=== PATIENT | female | born 1950 | race American Indian/Alaskan Native ===

== ENCOUNTER 2016-03-24 07:06 | Inpatient (IN) | payer BC, MEDICARE ==
--- NOTE | 2016-03-19 08:57 | Anesthesia Consultation ---
Anesthesia Consult and Med Hx Date of service: 03/24/16 - Airway Anesthetic Teeth Evaluation: Good ROM Head & Neck: Adequate Mental/Hyoid Distance: Adequate Mallampati Class: Class I Intubation Access Assessment: Good - Pulmonary Exam CTA: Yes - Cardiac Exam Cardiac Exam: RRR - Pre-Operative Health Status ASA Pre-Surgery Classification: ASA1 Proposed Anesthetic Plan: General, Epidural Nerve Block: Femoral - Pulmonary Hx Smoking: No Hx Sleep Apnea: No (KATHERINE PRE SCREEN LOW RISK) - Cardiovascular System Hx Hypertension: No - Central Nervous System Hx Back Pain: Yes - Other Systems Hx Cancer: No - Additional Comments Anesthesia Medical History Comments: Healthy. Had difficulty breathing after shoulder surgery, a few years ago. Dilaudid causes severe itching. Patient has had hysterectomy.
[~2016-03-24 07:06] MED LIST: ANCEF/STERILE WATER 2 GM/20 ML IV NR; MARCAINE-EPI 0.5%-1:200,000 INFILTRATI ONE; NACL 0.9% 1000 ML 1,000 ML IV SCH; NACL 0.9% IR ONE; NEOSPORIN GU IR ONE; NEURONTIN PO NR; PEPCID IV NR; VERSED IV PRN
[2016-03-24] MEDS ORDERED: ZOFRAN IV PRN ×2 (07:49→13:51)
[2016-03-24] MEDS ORDERED: MORPHINE IV PRN (07:50)
--- NOTE | 2016-03-24 07:51 | Anesthesia Day of Surgery ---
Anesthesia Day of Surgery - Day of Surgery Patient Examined: Yes Patient H&P Reviewed: Yes Patient is NPO: Yes
[2016-03-24] MEDS ORDERED: MARCAINE 0.5% INFILTRATI ONE (08:00)
[2016-03-24] MEDS ORDERED: DECADRON ONE (08:19)
[2016-03-24] MEDS ORDERED: XYLOCAINE 1% 20 mL ONE (08:20)
[2016-03-24] MEDS ORDERED: MARCAINE-EPI 0.5%-1:200,000 INFILTRATI ONE ×2 (08:20→10:04)
[2016-03-24] MEDS ORDERED: DIPRIVAN 10 MG/ML 100 ML IV ONE (09:17)
[2016-03-24] MEDS ORDERED: NEO SYNEPHRINE/NS Syringe(OR USE) IV ONE (09:22)
[2016-03-24] MEDS ORDERED: SUBLIMAZE ONE (09:32)
[2016-03-24] MEDS ORDERED: VERSED ONE (09:32)
[2016-03-24] MEDS ORDERED: XYLOCAINE MPF 2% ONE (09:32)
[2016-03-24] MEDS ORDERED: TRANEXAMIC ACID 1,000 MG in NACL 0.9% 100 ML IV NR (10:00)
[2016-03-24] MEDS ORDERED: NEOSPORIN GU IR ONE (10:31)
[2016-03-24] MEDS ORDERED: NACL 0.9% IR ONE ×2 (10:31→11:29)
--- NOTE | 2016-03-24 10:55 | Admit Criteria Form ---
Admission Criteria Documentation: AMBULATORY SURGERY EXCEPTION CRITERIA Ambulatory Surgery Exception Criteria ( Place 'X' for any and all applicable criteria): Surgery or procedure performed on ambulatory basis may require inpatient stay for[A] ANY ONE of the following(1)(2)(3)(4)(5)(6)(7)(8)(9): [X] I. A preoperative situation, condition, or finding that warrants inpatient stay as indicated by ANY ONE of the following: [X] a) Inpatient care needed because of severity of a disease or condition rather than the surgery (eg, severe cardiac or respiratory disease, severe infection) (15) (16 ) (17) (18) [] b) Emergent procedure (eg, angioplasty for acute ischemia)(19) [] c) Complex surgical approach or situation as indicated by ANY ONE of the following(3): [] i) Open approach needed instead of usual endoscopic, transcatheter, or other less invasive procedure [] ii) Difficult approach because of previous operation [] iii) Airway monitoring required after open neck procedures(20)(21) [] iv) Large mass requiring unusually extensive dissection [] v) Additional complicating feature requiring inpatient care (eg, drain management)(22(23): [] d) Major surgery in a pt with high anesthetic risk as indicated by ANY ONE of the following (2)(3)(5)(7)(8): [] i) ASA risk class III or higher (severe systemic disease impairing function) [D] [] ii) Advanced age (eg, older than 85 years)(14)(24) [] iii) Symptomatic heart failure(25) [] iv) Symptomatic asthma or COPD(8)(21) [] v) Morbid obesity with hemodynamic or respiratory problems(20)( 21)(26)(27) [] vi) Obstructive sleep apnea(20)(21) [] vii) Former premature infants who are younger than 60 weeks [] viii) High risk for severe postoperative abnormalities (eg, severe postoperative hypocalcemia after parathyroidectomy for severe hyperparathyroidism)(27)( 28) [] ix) Unstable angina(25) [] e) Drug-related risk requiring inpatient stay as indicated by ANY ONE of the following(5)(10)(14)(32)(33) [] i) Procedure requires discontinuing drugs or other therapy (eg , antiarrhythmic medication, antiseizure medication), which necessitates inpatient observation or treatment.(18)(31) [] ii) Major surgery and high risk drug use as indicated by ANY ONE of the following: [] 1) Active abuse of cocaine or similar drug [] 2) Monoamine oxidase inhibitor use [] 3) Other drug identified as posing risk [] f) Inadequate outpatient care situation as indicated by ANY ONE of the following(5)(10)(14)(32)(33) [] i) Patient lives remote from medical facility and procedure has urgent complication potential, and temporary nearby residence cannot be arranged [] ii) Patient will have postprocedure incapacitation and inadequate assistance at home, or alternative level of care cannot be arranged. [] iii) Patient will have long general anesthesia or procedure side effect resolution time, and competent person to stay with patient on first postoperative night at home or alternative level of care cannot be arranged. []iv) Other inadequate outpatient situation that cannot be handled by other means [] II. A perioperative event, condition, or finding that warrants inpatient stay as indicated by ANY ONE of the following (1)(2)(3): [] a) Inadequate physiologic recovery: cardiovascular, respiratory, or hemodynamic status not normal or near preoperative baseline(18) [] b) Hemodynamic instability [] c) Patient not alert with near normal or baseline mental status [] d) Temperature not normal or as expected and not appropriate for outpatient treatment of condition [] e) Ambulatory or appropriate activity level status not yet achieved post procedure [E](34)(35)(36) [] f) Operative site not appropriate (eg, unexpected or excessive drainage or bleeding) [] g) Postoperative effects not resolved or adequately managed (eg, significant pain or vomiting not appropriate for outpatient or next level of care)(10)(12) [] h) Complicating features requiring inpatient care as indicated by ANY ONE of the following(37): [] i) Severe complications of procedure (eg, bowel injury, airway compromise, vascular injury,severe hemorrhage) [] ii) Extensive (eg, dissection far beyond usual scope of procedure ) or prolonged (eg, 120 minutes beyond usual) surgery needed requiring inpatient postoperative care [] iii) Conversion to an open or complex procedure that requires inpatient care (eg, open vs laparoscopic cholecystectomy, abdominal vs vaginal hysterectomy)(38) [] iv) Comorbid condition or test result identified during or post procedure that requires inpatient care (7) [] v) Malignant hyperthermia(30) [] vi) Other complicating feature requiring inpatient care(22)(23) Inpatient stay may be needed until ALL of the following are present (1)(2)(3)(4) (5)(6)(10)(14)(33)(40): []a) Physiologic recovery: cardiovascular, respiratory, and hemodynamic status normal or near preoperative baseline []b) Hemodynamic stability []c) Patient alert, with near normal or baseline mental status []d) Temperature appropriate: patient afebrile or temperature appropriate for outpt treatment of condition []e) Activity level appropriate: ambulatory or appropriate activity level post procedure []f) Operative site appropriate as indicated by ALL of the following: []i) Site dry or with expected drainage []ii) Any blood noted is as expected for procedure. []g) Postoperative effects resolved or managed as indicated by ALL of the following: []i) Pain management appropriate for outpatient (or next level of) care(10) []ii) Minimal nausea and vomiting: if present, successfully treated with oral medication(12) []iii) Headache, dizziness, or drowsiness (if present) are mild. []h) Voiding status acceptable as indicated by ANY ONE of the following: []i) Voiding spontaneously []ii) No voiding but instructions given for follow-up in 6 to 8 hours []iii) Urinary catheter in place, and instructions given for follow-up []i) Complicating features requiring inpatient care manageable at a lower level of care(37) []j) Comorbid conditions manageable at a lower level of care(37) The original [employer] content created by [employer] has been revised. The portions of the content which have been revised are identified through the use of italic text or in bold, and [employer] has neither reviewed nor approved the modified material. All other unmodified content is copyright [employer] Please see references footnoted in the original [employer] edition 2016 Admission Criteria Met: Yes
--- NOTE | 2016-03-24 12:55 | Post Anesthesia Evaluation ---
- Post Anesthesia Evaluation Patient Participated: Yes Airway Patent: Yes Stable Respiratory Function: Yes Nausea/Vomiting: No Temp > 96.8F: Yes Pain Manageable: Yes Adequeate Hydration: Yes Anesthesia Complications: No Block Receding Appropriately: Not Applicable Patient on Ventilator: No
[2016-03-24] MEDS ORDERED: SODIUM CHLORIDE FLUSH SYRINGE 10 ML IV NR ×2 (13:00→14:00)
[2016-03-24] MEDS ORDERED: NORCO 5/325 PO PRN (13:51)
[2016-03-24] MEDS: ANCEF/NS 1 GM/50 ML 50 ML IV SCH (15:40)
[2016-03-24] MEDS: MORPHINE IV PRN (18:40)
--- NOTE | 2016-03-24 21:07 | Operative Report ---
PREOPERATIVE DIAGNOSIS: Right knee with severe degenerative joint disease. POSTOPERATIVE DIAGNOSIS: Right knee with severe degenerative joint disease. PROCEDURE PERFORMED: Right total knee replacement utilizing a [employer] Get[employer]Knee with: 1. Size 3 noncemented femur. 2. Size 3 noncemented tibia. 3. 9 mm polyethylene insert. 4. 33 mm cemented patella. 5. 7-degree valgus cut with 8 mm distal femoral resection. SURGEON: Jaison Chacon M.D. ALPINE PATROLLER: Edwin Tim CSA ANESTHESIA: Spinal epidural plus adductor block. ESTIMATED BLOOD LOSS: Minimal. COMPLICATIONS: None. DESCRIPTION OF PROCEDURE: The patient underwent successful induction of anesthesia. Lower extremity was meticulously prepped and draped in the usual fashion. Antibiotics and tranexamic acid had been preadministered. The lower extremity was exsanguinated and tourniquet inflated. A standard midline incision was utilized, with median trivector arthrotomy. Appropriate exposure of the joint was carried out. The standard patellar resection carried out utilizing the jigs of excellent sizing for the 33 mm. This was retracted without eversion, tibiofemoral joint exposed. Intramedullary avinash introduced in the femur with sequential suctioning and the standard cuts were made on the femur with utilizing the jig with sizing noted. The ACL resected. Intramedullary avinash introduced in the tibia and resection was performed on the high side laterally. Excellent cuts made. The menisci resected. The gaps were then appropriately balanced. She had excellent fit and fixation sizing for the 9 mm polyethylene with balance. The wound was thoroughly irrigated. The components were placed. She had full range of motion and excellent stability, flexion and extension were noted. The tracking had excellent tracking as well. Once again, the wound was irrigated. Arthrotomy reapproximated with Ethibond sutures followed by 0 and #2-0 Vicryl for subcutaneous tissue with Monocryl for the skin. Sterile island dressing applied. Tourniquet released prior to wound closure with no significant bleeding encountered. Taken to recovery room in satisfactory condition, having tolerated the procedure well. JOB# [id number] PORFIRIO/EBER
[2016-03-24] MEDS ORDERED: NARCAN 0.4 MG/1 ML IV PRN (21:54)
--- NOTE | 2016-03-24 22:08 | Consultation ---
History of Present Illness - Reason for Consult Consult date: 03/24/16 Medical management Requesting physician: LESLEY HICKS - History of Present Illness S/p R TKA Doing well Past History Past Medical History: arthritis, GERD Past Surgical History: total knee replacement Medications and Allergies Allergies Allergy/AdvReac Type Severity Reaction Status Date / Time erythromycin base Allergy Unknown Verified 03/16/16 12:05 [From E-Mycin] hydromorphone HCl Allergy Itching Verified 03/16/16 12:05 [From Dilaudid] Home Medications Medication Instructions Recorded Confirmed Last Taken Type Ranitidine HCl [Zantac 150 MG TAB] 150 mg PO PRN PRN 03/16/16 03/24/16 03/23/16 History Active Meds: Active Medications Acetaminophen/Hydrocodone Bitart ([place] 5/325) 1 each PO Q4H PRN PRN Reason: Pain, Moderate (4-6) Last Admin: 03/24/16 20:45 Dose: 1 each Cefazolin Sodium (Ancef/Sterile Water 2 Gm/20 Ml) 2 gm IV PREOP NR Stop: 03/24/16 23:59 Celecoxib (Celebrex) 200 mg PO PREOP NR Stop: 03/24/16 23:59 Last Admin: 03/24/16 08:25 Dose: 200 mg Famotidine (Pepcid) 20 mg IV PREOP NR Stop: 03/24/16 23:59 Last Admin: 03/24/16 08:25 Dose: 20 mg Gabapentin (Neurontin) 300 mg PO PREOP NR Stop: 03/24/16 23:59 Last Admin: 03/24/16 08:25 Dose: 300 mg Sodium Chloride (Nacl 0.9% 1000 Ml) 1,000 mls @ 75 mls/hr IV DIRECT KIMBERLY Stop: 03/24/16 23:59 Last Admin: 03/24/16 08:20 Dose: 75 mls/hr Cefazolin Sodium (Ancef/Ns 1 Gm/50 Ml) 50 mls @ 100 mls/hr IV Q8H KIMBERLY Stop: 03/25/16 00:29 Last Admin: 03/24/16 15:40 Dose: 100 mls/hr Midazolam HCl (Versed) 2 mg IV PREOP PRN PRN Reason: Agitation Stop: 03/24/16 23:59 Last Admin: 03/24/16 08:30 Dose: 2 mg Morphine Sulfate (Morphine) 4 mg IV Q4H PRN PRN Reason: Pain , Severe (7-10) Last Admin: 03/24/16 18:40 Dose: 4 mg Morphine Sulfate (Morphine [employer] 30mg/30ml) 0 mg IV DIRECT KIMBERLY PRN Reason: Protocol Naloxone HCl (Narcan 0.4 Mg/1 Ml) 0.1 mg IV Q2MIN PRN PRN Reason: Res Rate </= 8 or 02 SAT < 92% Ondansetron HCl (Zofran) 4 mg IV Q8H PRN PRN Reason: Nausea And Vomiting Sodium Chloride (Sodium Chloride Flush Syringe 10 Ml) 10 ml IV PRN NR Stop: 03/29/16 12:59 Review of Systems All systems: negative Exam - Constitutional Vitals: Temp Pulse Resp BP Pulse Ox 97.3 F L 54 L 20 129/77 98 03/24/16 17:00 03/24/16 17:00 03/24/16 20:45 03/24/16 17:00 03/24/16 17:00 General appearance: Present: no acute distress, well-nourished - EENT Eyes: Present: PERRL ENT: hearing intact, clear oral mucosa - Neck Neck: Present: supple, normal ROM - Respiratory Respiratory effort: normal Respiratory: bilateral: CTA - Cardiovascular Heart Sounds: Present: S1 & S2. Absent: rub, click - Extremities Extremities: pulses symmetrical, No edema Peripheral Pulses: within normal limits - Abdominal General gastrointestinal: Present: soft, non-tender, non-distended, normal bowel sounds Female genitourinary: Present: normal - Integumentary Integumentary: Present: clear, warm, dry - Musculoskeletal Musculoskeletal: gait normal, strength equal bilaterally - Psychiatric Psychiatric: appropriate mood/affect, intact judgment & insight - Neurologic Neurologic: CNII-XII intact, moves all extremities Assessment and Plan - Patient Problems (1) Hx of total knee arthroplasty Current Visit: Yes Status: Acute Qualifiers: Laterality: right Qualified Code(s): Z96.651 - Presence of right artificial knee joint Plan to address problem: Cont PT (2) GERD (gastroesophageal reflux disease) Current Visit: Yes Status: Chronic Qualifiers: Esophagitis presence: without esophagitis Qualified Code(s): K21.9 - Gastro -esophageal reflux disease without esophagitis (3) Pain management Current Visit: Yes Status: Acute Plan to address problem: Adequate (4) DVT prophylaxis Current Visit: Yes Status: Acute Plan to address problem: On ASA
[2016-03-24] MEDS: MORPHINE PCA 30MG/30ML IV SCH (22:45)
[2016-03-25] MEDS: ANCEF/NS 1 GM/50 ML 50 ML IV SCH
[2016-03-25] MEDS: NACL 0.9% 1000 ML 1,000 ML IV SCH (06:00)
--- NOTE | 2016-03-25 09:23 | Progress Note ---
Assessment and Plan - Patient Problems (1) GERD (gastroesophageal reflux disease) Current Visit: Yes Status: Acute (2) Hx of total knee arthroplasty Current Visit: Yes Status: Acute Qualifiers: Laterality: right Qualified Code(s): Z96.651 - Presence of right artificial knee joint Plan to address problem: Cont PT (3) Pain management Current Visit: Yes Status: Acute Plan to address problem: Adequate (4) DVT prophylaxis Current Visit: Yes Status: Acute Plan to address problem: On ASA (5) Discharge planning issues Current Visit: Yes Status: Acute Plan to address problem: To be discharged to Rehab Subjective Date of service: 03/25/16 Principal diagnosis: S/p TKA Interval history: Post op doing well Objective - Constitutional Vitals: Vital Signs - 12hr 03/24/16 03/25/16 23:01 01:18 Temperature 97.1 F L 98.6 F Pulse Rate [ 71 66 Left] Respiratory 20 20 Rate Blood Pressure 160/85 133/77 [Left Arm] O2 Sat by Pulse 98 100 Oximetry General appearance: Present: no acute distress, well-nourished - EENT Eyes: PERRL, EOM intact ENT: hearing intact, clear oral mucosa Ears: bilateral: normal - Neck Neck: supple, normal ROM - Respiratory Respiratory effort: normal Respiratory: bilateral: CTA - Breasts Breasts: normal - Cardiovascular Rhythm: regular Heart Sounds: Present: S1 & S2. Absent: gallop, rub Extremities: pulses intact, No edema, normal color, Full ROM - Gastrointestinal General gastrointestinal: Present: soft, non-tender, non-distended, normal bowel sounds - Genitourinary Female genitourinary: normal - Integumentary Integumentary: clear, warm, dry - Musculoskeletal Musculoskeletal: 1, strength equal bilaterally - Neurologic Neurologic: moves all extremities - Psychiatric Psychiatric: memory intact, appropriate mood/affect, intact judgment & insight
[2016-03-25] MEDS ORDERED: PEPCID PO PRN (10:00)
--- NOTE | 2016-03-25 11:51 | Progress Note ---
Subjective Date of service: 03/25/16 Interval history: 1st POD after total knee replacement. Patient is in the bed, relatively comfortable. Pain is well controlled with pain meds. Prepares to ambulate with physical therapist. Had some nausea after the meal. No anesthesia complications Objective - Constitutional Vitals: Vital Signs - 12hr 03/25/16 03/25/16 01:18 08:00 Temperature 98.6 F 98.7 F Pulse Rate [ 66 75 Left] Respiratory 20 18 Rate Blood Pressure 133/77 122/61 [Left Arm] O2 Sat by Pulse 100 97 Oximetry
[2016-03-25] MEDS: MORPHINE PCA 30MG/30ML IV SCH (12:27)
--- NOTE | 2016-03-25 15:55 | Progress Note ---
Subjective Date of service: 03/25/16 Interval history: VSS c/opain NVI CAlf supple Cont MILL ORDER SCHEDULER, PT/ med mgmt Rec tranfer to rehab Objective Vital signs: Vital Signs - 12hr 03/25/16 03/25/16 08:00 12:16 Temperature 98.7 F Pulse Rate [ 75 Left] Respiratory 18 Rate Blood Pressure 122/61 [Left Arm] O2 Sat by Pulse 97 97 Oximetry
[2016-03-25] MEDS: BENADRYL IV PRN (18:26)
[2016-03-25] MEDS: PERCOCET 5/325 PO PRN (21:44)
[2016-03-26] MEDS: NACL 0.9% 1000 ML 1,000 ML IV SCH (05:49)
[2016-03-26] MEDS: BENADRYL IV PRN (05:49)
[2016-03-26] MEDS: MORPHINE IV PRN (10:52)
--- NOTE | 2016-03-26 23:49 | Progress Note ---
Assessment and Plan - Patient Problems (1) Hx of total knee arthroplasty Current Visit: Yes Status: Acute Qualifiers: Laterality: right Qualified Code(s): Z96.651 - Presence of right artificial knee joint Plan to address problem: Cont PT (2) GERD (gastroesophageal reflux disease) Current Visit: Yes Status: Chronic Qualifiers: Esophagitis presence: without esophagitis Qualified Code(s): K21.9 - Gastro -esophageal reflux disease without esophagitis (3) Pain management Current Visit: Yes Status: Acute Plan to address problem: Adequate (4) DVT prophylaxis Current Visit: Yes Status: Acute Plan to address problem: On ASA Subjective Date of service: 03/26/16 Principal diagnosis: S/p TKA Interval history: Post op doing well Objective - Constitutional Vitals: Vital Signs - 12hr 03/26/16 03/26/16 03/26/16 15:35 21:14 22:00 Temperature 100.6 F H 100.2 F H Pulse Rate [ 97 H 115 H Left] Respiratory 20 20 Rate Blood Pressure 143/70 132/61 [Left Arm] O2 Sat by Pulse 97 Oximetry General appearance: Present: no acute distress, well-nourished - EENT Eyes: PERRL, EOM intact ENT: hearing intact, clear oral mucosa Ears: bilateral: normal - Neck Neck: supple, normal ROM - Respiratory Respiratory effort: normal Respiratory: bilateral: CTA - Breasts Breasts: normal - Cardiovascular Rhythm: regular Heart Sounds: Present: S1 & S2. Absent: gallop, rub Extremities: pulses intact, No edema, normal color, Full ROM - Gastrointestinal General gastrointestinal: Present: soft, non-tender, non-distended, normal bowel sounds - Genitourinary Female genitourinary: normal - Integumentary Integumentary: clear, warm, dry - Musculoskeletal Musculoskeletal: 1, strength equal bilaterally - Neurologic Neurologic: moves all extremities - Psychiatric Psychiatric: memory intact, appropriate mood/affect, intact judgment & insight
[2016-03-27] MEDS: MORPHINE IV PRN (06:13)
[2016-03-27] MEDS: MORPHINE PCA 30MG/30ML IV SCH (07:00)
[2016-03-27] MEDS: BENADRYL IV PRN ×2 (07:15→13:53)
[2016-03-27] MEDS: PERCOCET 5/325 PO PRN ×2 (10:22→13:50)
--- NOTE | 2016-03-27 17:47 | Discharge Summary ---
Providers - Providers Date of Admission: 03/24/16 07:06 Date of discharge: 03/27/16 Attending physician: LESLEY HICKS 03/24/16 13:51 Consult to Case Management [CONS] Routine Services Needed at Discharge: Physical Therapy Notified:: YES Consult to Physician [CONS] Routine Consulting Provider: ANABEL BAÑUELOS Reason For Exam: MEDICAL MANAGEMENT Place consult to:: YES Notified:: YES 03/24/16 13:54 Physical Therapy Evaluation and Treat [CONS] Routine Comment: START TODAY AND IN AM Reason For Exam: RT TOTAL KNEE Primary care physician: HERMAN MCCALLUM Hospitalization Condition: Good Procedures: He should present for total knee replacement did well tolerated procedure well. Limited pain. Increasing range of motion. Patient states was scheduled to be discharged to inpatient rehabilitation today. Hospital course: Brought in had total knee arthroplasty right knee. Pain adequately controlled. Patient had DVT prophylaxis stable to be discharged to rehabilitation third floor. Disposition: DC/TX INPT REHAB FACILITY - Discharge Diagnoses (1) DVT prophylaxis Status: Acute (2) Discharge planning issues Status: Acute (3) Hx of total knee arthroplasty Status: Acute Qualifiers: Laterality: right Qualified Code(s): Z96.651 - Presence of right artificial knee joint (4) Pain management Status: Acute (5) GERD (gastroesophageal reflux disease) Status: Chronic Qualifiers: Esophagitis presence: without esophagitis Qualified Code(s): K21.9 - Gastro -esophageal reflux disease without esophagitis Core Measure Documentation - Palliative Care Palliative Care/ Comfort Measures: Not Applicable - Core Measures Any of the following diagnoses?: none Exam - Constitutional Vitals: Temp Pulse Resp BP Pulse Ox 98.1 F 96 H 20 149/83 95 03/27/16 08:00 03/27/16 08:00 03/27/16 13:50 03/27/16 08:00 03/27/16 10:00 General appearance: Present: no acute distress, well-nourished - EENT Eyes: Present: PERRL ENT: hearing intact, clear oral mucosa - Neck Neck: Present: supple, normal ROM - Respiratory Respiratory effort: normal Respiratory: bilateral: CTA - Cardiovascular Heart Sounds: Present: S1 & S2 - Extremities Extremities: pulses symmetrical, No edema Extremity abnormal: other (knee bandage cover) Peripheral Pulses: within normal limits - Abdominal General gastrointestinal: Present: soft, non-tender, non-distended, normal bowel sounds Female genitourinary: Present: deferred - Integumentary Integumentary: Present: clear, warm, dry - Musculoskeletal Musculoskeletal: gait normal, strength equal bilaterally - Psychiatric Psychiatric: appropriate mood/affect, intact judgment & insight - Neurologic Neurologic: CNII-XII intact, moves all extremities Plan Activity: advance as tolerated, fall precautions Weight Bearing Status: Weight Bear as Tolerated Diet: regular Prescriptions: Famotidine [Pepcid] 20 mg PO BID PRN #30 tablet PRN Reason: Dyspepsia oxyCODONE /ACETAMINOPHEN [Percocet 5/325 mg] 1 tab PO Q4H PRN #60 tablet PRN Reason: Pain, Moderate (4-6)
[2016-03-27 20:42] VITALS: BP 127/77
== END 2016-03-27 20:45 | DRG 470 ==
LOC: 3A 07:06 → 2B-SURG 14:04
PROVIDERS: ADMIT Orthopaedic Surgery; ATTEND Orthopaedic Surgery
PROC: 0SRC0J9 Replacement of Right Knee Joint with Synthetic Substitute, Cemented, Open Approach (ICD-10-PCS; principal; 2016-03-24)
DX: M17.11 Unilateral primary osteoarthritis, right knee (principal); K21.9 Gastro-esophageal reflux disease without esophagitis; Z90.710 Acquired absence of both cervix and uterus; Z88.1 Allergy status to other antibiotic agents; Z88.6 Allergy status to analgesic agent
CPT/HCPCS: 62324; 64450; 88304; 88305; 88311; 94760; A4217; C1776; G8978-GP; G8979-GP; J0690; J1100; J1200; J2250; J2270; J2370; J2405; J2704; J3010; J7030

== ENCOUNTER 2016-03-27 21:13 | Inpatient (IN) | payer BC, MEDICARE ==
[2016-03-27] MEDS ORDERED: MILK OF MAGNESIA PO PRN (21:31)
[2016-03-27] MEDS: PEPCID PO SCH (22:38)
[2016-03-27] MEDS: COLACE PO SCH (22:38)
[2016-03-27] MEDS: PERCOCET 5/325 PO PRN (22:47)
[2016-03-28] MEDS: NORCO 5/325 PO PRN ×5 (01:43→22:17)
[2016-03-28 04:41] LABS: Basophils % (Auto) 0.6 % (0.0-1.8); Eosinophils % (Auto) 3.6 % (0.0-4.3); Hematocrit 35.4 % (30.3-42.9); Hemoglobin 11.8 gm/dl (10.1-14.3); Mean Corpuscular HGB Conc 33 % (30-34); Mean Corpuscular Hemoglobin 32 pg (28-32); Mean Corpuscular Volume 95 fl (79-97); Platelet Count 141 K/mm3 (140-440); Red Blood Count 3.73 M/mm3 (3.65-5.03); Red Cell Distribution Width 14.7 % (13.2-15.2); White Blood Count 5.8 K/mm3 (4.5-11.0)
[2016-03-28 04:51] LABS: Alanine Aminotransferase 20 units/L (7-56); Alkaline Phosphatase 51 units/L (35-129); BUN/Creatinine Ratio 16.66; Bilirubin,Total 0.4 mg/dL (0.1-1.2); Blood Urea Nitrogen 10 mg/dL (7-17); Calcium 8.2 mg/dL (8.4-10.2); Carbon Dioxide 27 mmol/L (22-30); Chloride 101.7 mmol/L (98-107); Glucose 114 mg/dL (65-100); Potassium 3.7 mmol/L (3.6-5.0); Sodium 140 mmol/L (137-145); Total Protein 6.1 g/dL (6.3-8.2)
[2016-03-28 04:54] LABS: Anion Gap 15 mmol/L
[2016-03-28] MEDS: PEPCID PO SCH ×2 (08:41→22:18)
[2016-03-28] MEDS: COLACE PO SCH ×2 (08:41→22:18)
[2016-03-28] MEDS: LOVENOX SUB-Q SCH (08:41)
--- NOTE | 2016-03-28 08:55 | History and Physical Report ---
History of Present Illness Date: 03/28/16 Referring Facility: [facility] Date of admission: 03/27/16 21:13 Chief Complaint: right knee OA, s/p right TKA History of present illness: POST ADMISSION PHYSICIAN EVALUATION ONSET DATE: 03/24/2016 IMPAIRMENT GROUP CODE: 08.61 ETIOLOGIC DIAGNOSIS: right knee OA, s/p right TKA STATUS CHANGES SINCE PREADMISSION SCREENING: PAS has been reviewed. In comparison, pt is with improved pain at right knee (off SHEET SEWER), however, reported to have some muscle guarding with knee flexion. Noted to have constipation; will add laxative. Pt continues with functional deficits and remains an appropriate candidate for IPR course. PREVIOUS FUNCTIONAL STATUS: Independent with ADLs, gait, transfers CURRENT FUNCTIONAL STATUS: supervision for transfers, gait HPI 65 y.o. female admitted for right TKA. Pt reports longstanding history of bilateral knee osteoarthritis, with progressive worsening of pain symptoms; failed conservative therapies. Post-op course significant for uncontrolled pain and noted functional deficits. Pt was slow to progress with therapy and thought to be able to tolerate aggressive IPR; pt is now admitted to IRU for PT/ OT and ongoing medical management. Past History Past Medical History: arthritis (B/L knee), GERD Past Surgical History: hysterectomy, total knee replacement (right), Other ( right shoulder replacement) Social history: , lives with family. denies: smoking, alcohol abuse Family history: cancer (breast), diabetes, hypertension Medications and Allergies Allergies Allergy/AdvReac Type Severity Reaction Status Date / Time erythromycin base Allergy Unknown Verified 03/16/16 12:05 [From E-Mycin] hydromorphone HCl Allergy Itching Verified 03/16/16 12:05 [From Dilaudid] Home Medications Medication Instructions Recorded Confirmed Last Taken Type Ranitidine HCl [Zantac 150 MG TAB] 150 mg PO PRN PRN 03/16/16 03/28/16 03/23/16 History Famotidine [Pepcid] 20 mg PO BID PRN #30 tablet 03/27/16 03/28/16 Unknown Rx oxyCODONE /ACETAMINOPHEN [Percocet 1 tab PO Q4H PRN #60 tablet 03/27/16 Unknown Rx 5/325 mg] Active Meds: Active Medications Acetaminophen/Hydrocodone Bitart ([place] 5/325) 2 each PO Q6H PRN PRN Reason: Pain, Moderate (4-6) Last Admin: 03/28/16 06:55 Dose: 1 each Docusate Sodium (Colace) 100 mg PO BID [facility] Last Admin: 03/28/16 08:41 Dose: 100 mg Enoxaparin Sodium (Lovenox) 40 mg SUB-Q QDAY [facility] Last Admin: 03/28/16 08:41 Dose: 40 mg Famotidine (Pepcid) 20 mg PO BID [facility] Last Admin: 03/28/16 08:41 Dose: 20 mg Magnesium Hydroxide (Milk Of Magnesia) 30 ml PO Q4H PRN PRN Reason: Constipation Oxycodone/Acetaminophen (Percocet 5/325) 1 tab PO Q4H PRN PRN Reason: Pain, Moderate (4-6) Last Admin: 03/27/16 22:47 Dose: 1 tab Review of Systems All systems: negative Ears, nose, mouth and throat: no headache Cardiovascular: no chest pain, no lightheadedness Respiratory: no cough Gastrointestinal: constipation, no nausea, no vomiting Genitourinary Female: no dysuria Musculoskeletal: gait dysfunction, other (post-op knee pain, intermittent) Exam - Constitutional Vitals: Vital Signs - 12hr 03/27/16 03/27/16 03/27/16 21:17 22:00 22:47 Temperature 98.1 F Pulse Rate [ Apical] Pulse Rate [ 85 Left Brachial] Respiratory 18 18 Rate Respiratory 24 Rate [Right Knee] Blood Pressure 116/68 [Left Arm] Blood Pressure [Left Radial Artery] O2 Sat by Pulse 95 Oximetry 03/27/16 03/27/16 03/28/16 23:23 23:47 01:43 Temperature 98.2 F Pulse Rate [ 86 Apical] Pulse Rate [ Left Brachial] Respiratory 18 24 24 Rate Respiratory 18 Rate [Right Knee] Blood Pressure [Left Arm] Blood Pressure 116/68 [Left Radial Artery] O2 Sat by Pulse Oximetry 03/28/16 03/28/16 03/28/16 06:55 07:55 08:00 Temperature 98.7 F Pulse Rate [ Apical] Pulse Rate [ 82 Left Brachial] Respiratory 18 20 20 Rate Respiratory Rate [Right Knee] Blood Pressure [Left Arm] Blood Pressure 146/90 [Left Radial Artery] O2 Sat by Pulse 93 Oximetry General appearance: no acute distress, other (ambulating with PT) - EENT Eyes: EOM intact ENT: hearing intact - Neck Neck: supple, normal ROM - Respiratory Respiratory effort: normal Respiratory: bilateral: CTA - Cardiovascular Rhythm: regular Heart Sounds: Present: S1 & S2 - Extremities Extremity abnormal: edema (RLE), erythema (medial incision line), other ( minimal bloody drainage; sutures in place) - Gastrointestinal General gastrointestinal: Present: soft, non-tender, non-distended, normal bowel sounds - Neurologic Neurologic: CNII-XII intact, moves all extremities (limited hip flexion when flat; intact ankle DF/PF) - Psychiatric Psychiatric: appropriate mood/affect, intact judgment & insight, memory intact, cooperative - Allied health notes FIMS assesment as documented by PT/OT/ST: Toileting Toileting Device Commode over Toilet Patient able to: Adjust clothes before,Clean self,Adjust clothes after Patient able to perform: 3/3 (100%) Social interaction/Memory/Problem solving Social Interaction FIM Score 6. Modified [place] Memory FIM Score 6. Modified [place] Problem Solving FIM Score 6. Modified [place] - Labs CBC & Chem 7: 03/28/16 04:07 03/28/16 04:07 Labs: Laboratory Results - last 72 hr 03/28/16 03/28/16 04:07 04:07 WBC 5.8 RBC 3.73 Hgb 11.8 Hct 35.4 MCV 95 MCH 32 MCHC 33 RDW 14.7 Plt Count 141 Lymph % (Auto) 30.8 [place] % (Auto) 11.1 H Eos % (Auto) 3.6 Baso % (Auto) 0.6 Lymph # 1.8 [place] # 0.6 Eos # 0.2 Baso # 0.0 Seg Neutrophils % 53.9 Seg Neutrophils # 3.1 Sodium 140 Potassium 3.7 Chloride 101.7 Carbon Dioxide 27 Anion Gap 15 BUN 10 Creatinine 0.6 L Estimated GFR > 60 BUN/Creatinine Ratio 16.66 Glucose 114 H Calcium 8.2 L Total Bilirubin 0.4 AST 28 ALT 20 Alkaline Phosphatase 51 Total Protein 6.1 L Albumin 3.0 L Albumin/Globulin Ratio 1.0 Assessment and Plan Assessment and plan: 65 y.o. female with bilateral knee OA, s/p right TKA; gait dysfunction. The patient is medically stable, however, requires ongoing medical management. Pt is appropriate for inpatient rehabilitation admission and is thought to be able to tolerate at least 3 hours of therapy a day, 5 days a week including 1.5 hours of physical therapy and 1.5 hours of occupational therapy. Patient is able to understand and follow basic directions and has attainable rehab goals. Potential barriers/complications include falls, DVT, PE, infection, hypertension , ileus, N/V. Plan 1. Rehabilitation- Pt will undergo multidisciplinary/integrative rehab PT/OT, Nursing. Areas to be addressed include, but are not limited to PT for mobility , strengthening, transfer training, ROM, endurance, stairs, balance; OT for ADLs , household tasks, adaptive equipment; Nursing for carryover of therapies, pain control, education, skin integrity, medication management, bowel/bladder management; Nutrition as needed; protective services officer for discharge planning and equipment needs. Potential interventions include appropriate assistive device or adaptive equipment. Expected overall level of functional improvement by discharge is Nolan for gait, transfers, ADLs. Pt will tentatively be discharged home with outpatient PT. Estimated length of stay is 5-7 days. 2. s/p right TKA- POD#4; d/c percocet; continue norco, however adjust to Q4; follow RLE edema and erythema at right knee 3. elevated BP- pt denies history of HTN; follow; ?pain related 4. constipation- add senna QHS; continue stool softener 5. DVT px- lovenox - Patient Problems (1) Bilateral primary osteoarthritis of knee Current Visit: Yes Status: Acute (2) Hx of total knee arthroplasty Current Visit: No Status: Acute Qualifiers: Laterality: right Qualified Code(s): Z96.651 - Presence of right artificial knee joint (3) Unsteady gait Current Visit: Yes Status: Acute (4) HTN (hypertension) Current Visit: Yes Status: Acute
[2016-03-28] MEDS: SENOKOT PO SCH (22:19)
[2016-03-29] MEDS: NORCO 5/325 PO PRN ×3 (08:20→21:37)
[2016-03-29] MEDS: COLACE PO SCH ×2 (09:11→21:36)
[2016-03-29] MEDS: LOVENOX SUB-Q SCH (09:12)
[2016-03-29] MEDS: PEPCID PO SCH ×2 (09:12→21:36)
--- NOTE | 2016-03-29 12:19 | Progress Note ---
Assessment and Plan 65 y.o. female with bilateral knee OA, s/p right TKA; gait dysfunction - s/p right TKA- pain improved with norco - elevated BP- pt denies history of HTN; if remains elevated with initiate on Norvasc in AM - constipation- resolved - doppler study ordered to R/O DVT to RLE; therapy held - Patient Problems (1) Bilateral primary osteoarthritis of knee Current Visit: Yes Status: Acute (2) Hx of total knee arthroplasty Current Visit: No Status: Acute Qualifiers: Laterality: right Qualified Code(s): Z96.651 - Presence of right artificial knee joint (3) Unsteady gait Current Visit: Yes Status: Acute (4) HTN (hypertension) Current Visit: Yes Status: Acute Subjective Date of service: 03/29/16 Principal diagnosis: right TKA Interval history: Pt seen in OT gym this AM, F/U IPR course, s/p right TKA. Pt reports nausea this AM, +BM. Also with right calf tenderness Objective - Constitutional Vitals: Vital Signs - 12hr 03/29/16 03/29/16 03/29/16 08:00 08:20 09:20 Temperature 98.8 F Pulse Rate [ 80 Left Brachial] Respiratory 20 20 20 Rate Blood Pressure 156/82 [Left Arm] O2 Sat by Pulse 96 Oximetry General appearance: Present: mild distress (nausea) - EENT Eyes: EOM intact ENT: hearing intact - Neck Neck: supple, normal ROM - Respiratory Respiratory effort: normal Extremity abnormal: edema (RLE, tenderness at right calf ), other (right knee incision healing well; no active drainage) - Gastrointestinal General gastrointestinal: Present: soft, non-tender - Neurologic Neurologic: CNII-XII intact, moves all extremities (RLE with decreased ROM at knee) - Psychiatric Psychiatric: appropriate mood/affect, cooperative - Allied health notes Allied health notes reviewed: PT (PT held on today due to acute diagnosis of right DVT), OT (s/u to CGA for ADLs, CGA for transfers) - Labs CBC & Chem 7: 03/28/16 04:07 03/28/16 04:07
[2016-03-29] MEDS: ZOFRAN PO PRN (12:38)
--- NOTE | 2016-03-29 13:21 | IRU Plan of Care ---
Interdisciplinary Plan of Care - IP IRU INTERDISCIPLINARY PLAN: [facility] Inpatient Rehab Unit Plan of Care IRU Interdisciplinary Care Plan Start: 03/27/16 21: 17 Freq: Admission then PRN Status: Active Document 03/29/16 12:59 DB (Rec: 03/29/16 13:03 DB [id number]) Interdisciplinary Problem List Interdisciplinary Problem List Interdisciplinary Problem List Impaired Bathing/Grooming Query Text:Answers will Trigger Problems Impaired Dressing and Outcomes on Worklist. Impaired Mobility Impaired Transfers Impaired Toileting Pain Management Knowledge Deficits Impaired Home Management Impaired Safety Medications Education IRU Interdisciplinary Care Plan Therapy Services Therapy Services Will Include: Physical Therapy Query Text:Patient will be seen for a Occupational Therapy minimum of 3 hours of daily therapy 5 out of 7 days a week. Therapy intensity may be adjusted within a 7 consecutive day period to effectively serve the individual needs of the patient. Treatment Frequency/Intensity/Duration Treatment Frequency 5 days per week Treatment Intensity 1.5 hours per discipline (PT/OT ) daily Treatment Duration 10-14 days Problem Area: Eating/Swallowing Eating/Swallowing Outcomes Eating/Swallowing Interventions Problem Area: Bathing/Grooming Bathing/Grooming Outcomes Improve [place] w/ Bathing Bathing/Grooming Interventions ADL Training Use of Assistive Devices Therapeutic Exercise Therapeutic Activity Balance Work Activity Tolerance Work Patient/Caregiver Education Problem Area: Dressing Dressing Outcomes Improve [place] w/ LB Dressing Dressing Interventions ADL Training Use of Assistive Devices Therapeutic Exercise Balance Work Patient/Caregiver Education Problem Area: Mobility Mobility Outcomes Improve [place] w/ Ambulation Improve [place] w/ Stairs /Curb Improve [place] w/ Wheelchair Mobility Interventions Therapeutic Exercise Activity Tolerance Work Use of Assistive Devices Patient/Caregiver Education Gait Training W/C Mobility Work Problem Area: Transfers Transfers Outcomes Improve [place] w/ Bed Transfers Improve [place] w/ Toilet Transfers Improve [place] w/ Tub/ Shower Transfers Improve [place] w/ Car Transfers Transfers Interventions Transfer Training Therapeutic Exercise Activity Tolerance Work Use of Assistive Devices Patient/Caregiver Education Problem Area: Bowel/Bladder Managment Bowel/Bladder Outcomes Remain free of UTI Bowel/Bladder Interventions Medication Education Problem Area: Toileting Toileting Outcomes Improve [place] w/ Toileting Toileting Interventions ADL Training Balance Work Use of Assistive Devices Patient/Caregiver Education Problem Area: Nutrition Nutrition Outcomes Nutrition Interventions Problem Area: Comprehension Comprehension Outcomes Comprehension Interventions Problem Area: Expression Expression Outcomes Expression Interventions Problem Area: Problem Solving Problem Solving Outcomes Problem Solving Interventions Problem Area: Memory Memory Outcomes Memory Interventions Problem Area: Pain Management Pain Management Outcomes Demonstrate/Verbalize Pain Strategies Pain Management Interventions Medication Management Positioning/Turning Patient/Caregiver Education Problem Area: Knowledge Deficits Knowledge Deficits Outcomes Verbalize Precautions Knowledge Deficits Interventions Medication Use Education Body Mechanics/Joint Protection Education Health Maintainence Education Safety Education Problem Area: Skin/Tissue Integrity Skin/Tissue Integrity Outcomes Exhibit Healing of Wound/ Incision Demonstrate Understanding of Self Wound Care Skin/Tissue Integrity Interventions Skin/Wound Care Dressing Change Education Positioning/Turning Problem Area: Social Interaction Social Interaction Outcomes Social Interaction Interventions Problem Area: Adjustment to Disability Adjustment to Disability Outcomes Adjustment to Disability Interventions Problem Area: Discharge Concerns Discharge Concerns Outcomes Discharge Home w/ Necessary Equipment Have Home Health/Outpatient Services Discharge Concerns Interventions Discharge Planning Family/Caregiver Conference Family/Caregiver Training Problem Area: Community Reintegration Community Reintegration Outcomes Demonstrate Understanding of Community Resources Community Reintegration Interventions Provide Community Resources Problem Area: Home Management Home Management Outcomes Improve [place] w/ Home Management Home Management Interventions Meal Preparation Clothing Care Activity Tolerance Work House Cleaning Patient/Caregiver Education Problem Area: Safety Safety Outcomes Provide Safe Environment Perform Selfcare Safely Demonstrate Good Safety w/ Transfers/Mobility Safety Interventions Identify Fall Risk [place] Pt. to Environment Reduce Environmental Hazards Problem Area: Medication Education Medication Education Outcomes Patient/Caregiver will Verbalize Understanding of Medications Medication Education Interventions Explain Administration/Side Effects/Interactions Problem Area: Diabetes Education Diabetes Education Outcomes Diabetes Education Interventions Problem Area: Oxygenation Oxygenation Outcomes Oxygenation Interventions Problem Area: Cardiovascular Cardiovascular Outcomes Cardiovascular Interventions Physician Only Medical Prognosis and Rehabilitation Patient demonstrates good Potential (Completed by Physician) rehab potential. Medical Prognosis: Good This plan of care has been developed based on the findings from the pre- admission assessment, post admission physician evaluation, information gathered from the assessments from all therapy disciplines and other pertinent clinicians. The plan of care has been reviewed and discussed in collaboration with the interdisciplinary team. The plan of care will be reviewed and updated at least weekly. 65 y.o. female with bilateral knee OA, s/p right TKA; gait dysfunction. The patient remains at risk for falls, infection, hypertension, ileus, N/V. Pt educated on need to take pain medications with food to avoid N/V; resolved constipation. RLE evaluated for DVT due to noted swelling; +doppler. Therapies placed on hold and pt initiated on xarelto. Will plan to resume in AM. Will also need to follow BP as noted to be elevated since admission and pain is now better controlled; may require initiate of anti-hypertensive. Pt continues with functional deficits and remains an appropriate candidate for IRU admission.
[2016-03-29] MEDS: XARELTO PO SCH ×2 (14:47→18:10)
[2016-03-29] MEDS: SENOKOT PO SCH (21:43)
[2016-03-30] MEDS: XARELTO PO SCH ×2 (08:57→18:05)
[2016-03-30] MEDS: COLACE PO SCH ×2 (08:57→22:16)
[2016-03-30] MEDS: PEPCID PO SCH ×2 (08:57→22:16)
--- NOTE | 2016-03-30 10:18 | Vascular Lab Report ---
Right Lower Extremity Venous Duplex Study: Reason for Exam: Right leg swelling. Comments on the Right: Nonocclusive deep venous thrombus is noted in the peroneal vein with no extension. The remaining veins visualized are freely compressible without evidence of internal echogenicity. Spontaneous and phasic flow is present proximally. Comments on the Left: A limited duplex study was done of the proximal veins of the left lower extremity. All veins visualized are freely compressible without evidence of internal echogenicity. Flow is spontaneous and phasic throughout. No evidence of acute or chronic thrombus is seen in any of the vessels visualized. Impression: Deep venous thrombosis in the right lower extremity below knee.
[2016-03-30] MEDS: PERCOCET 5/325 PO PRN (11:04)
--- NOTE | 2016-03-30 15:02 | Progress Note ---
Assessment and Plan 65 y.o. female with bilateral knee OA, s/p right TKA; gait dysfunction - s/p right TKA- nausea reported with norco on yesterday; continue prn percocet , tramadol added as alternative - elevated BP- initiate Norvasc - right peroneal vein DVT- Xarelto initiated on yesterday - team conference held on today- pt is independent with eating, Nolan for grooming, SBA with bathing, s/u for UB dressing, CGA for LB dressing, toileting , transfers; supervision for gait. Therapies to be resumed on today following diagnosis of DVT on yesterday. Tentative d/c home on 04/01/16. - Patient Problems (1) Bilateral primary osteoarthritis of knee Current Visit: Yes Status: Acute (2) Hx of total knee arthroplasty Current Visit: Yes Status: Acute Qualifiers: Laterality: right Qualified Code(s): Z96.651 - Presence of right artificial knee joint (3) Unsteady gait Current Visit: Yes Status: Acute (4) HTN (hypertension) Current Visit: Yes Status: Acute (5) Deep venous thrombosis of right peroneal vein Current Visit: Yes Status: Acute Subjective Date of service: 03/30/16 Principal diagnosis: right TKA Interval history: Pt seen in room this AM, F/U IPR course, s/p right TKA. +DVT noted on RLE doppler yesterday Objective - Constitutional Vitals: Vital Signs - 12hr 03/30/16 08:30 Temperature 98.5 F Pulse Rate [ 72 Left Brachial] Respiratory 22 Rate Blood Pressure 153/86 [Left Arm] O2 Sat by Pulse 96 Oximetry General appearance: Present: no acute distress - EENT Eyes: EOM intact ENT: hearing intact - Neck Neck: supple, normal ROM - Respiratory Respiratory effort: normal Extremity abnormal: edema (stable at RLE) - Neurologic Neurologic: CNII-XII intact, moves all extremities - Psychiatric Psychiatric: appropriate mood/affect, intact judgment & insight, memory intact, cooperative - Labs CBC & Chem 7: 03/28/16 04:07 03/28/16 04:07 - Imaging and cardiology Venous US: report reviewed (non-occlusive DVT in right peroneal vein)
[2016-03-30] MEDS: ZOFRAN PO PRN (19:33)
[2016-03-30] MEDS ORDERED: APRESOLINE PO PRN (20:02)
[2016-03-31] MEDS: ULTRAM PO PRN ×3 (07:36→22:05)
[2016-03-31] MEDS: PEPCID PO SCH ×2 (07:36→22:12)
[2016-03-31] MEDS: COLACE PO SCH ×2 (07:36→22:05)
[2016-03-31] MEDS: XARELTO PO SCH ×2 (07:36→19:57)
[2016-03-31] MEDS: NORVASC PO SCH (10:18)
--- NOTE | 2016-03-31 14:20 | Progress Note ---
Assessment and Plan 65 y.o. female with bilateral knee OA, s/p right TKA; gait dysfunction - s/p right TKA- prn tramadol -HTN- refused anti-hypertensive on yesterday afternoon; however, required prn hydralazine overnight; agreed to initiate Norvasc on today - right peroneal vein DVT- Xarelto - Patient Problems (1) Bilateral primary osteoarthritis of knee Current Visit: Yes Status: Acute (2) Hx of total knee arthroplasty Current Visit: Yes Status: Acute Qualifiers: Laterality: right Qualified Code(s): Z96.651 - Presence of right artificial knee joint (3) Unsteady gait Current Visit: Yes Status: Acute (4) HTN (hypertension) Current Visit: Yes Status: Acute Qualifiers: Hypertension type: essential hypertension Qualified Code(s): I10 - Essential (primary) hypertension (5) Deep venous thrombosis of right peroneal vein Current Visit: Yes Status: Acute Subjective Date of service: 03/31/16 Principal diagnosis: right TKA Interval history: Pt seen in room this AM, F/U IPR course, s/p right TKA. elevated BP noted overnight and this AM; pt now agrees to initiation of anti-hypertensive agent on today Objective - Constitutional Vitals: Vital Signs - 12hr 03/31/16 03/31/16 03/31/16 09:40 10:18 11:15 Temperature 97.9 F Pulse Rate 74 Pulse Rate [ 74 80 Apical] Respiratory 18 Rate Blood Pressure 149/88 Blood Pressure 149/88 150/78 [Right Arm] O2 Sat by Pulse 96 98 Oximetry General appearance: Present: no acute distress - EENT Eyes: EOM intact ENT: hearing intact - Neck Neck: supple, normal ROM - Respiratory Respiratory effort: normal Extremity abnormal: edema (RLE) - Neurologic Neurologic: CNII-XII intact, moves all extremities - Psychiatric Psychiatric: appropriate mood/affect, intact judgment & insight, memory intact, cooperative - Allied health notes Allied health notes reviewed: PT (SBA for transfers; supervision for gait up to 200 feet with RW), OT (s/u to CGA for ADLs) - Labs CBC & Chem 7: 03/28/16 04:07 03/28/16 04:07
[2016-04-01] MEDS: ULTRAM PO PRN ×2 (06:30→10:57)
[2016-04-01] MEDS ORDERED: ULTRAM PO ONE (09:00)
--- NOTE | 2016-04-01 09:50 | Discharge Summary ---
Providers - Providers Date of Admission: 03/27/16 21:13 Date of discharge: 04/01/16 Attending physician: SARITA FLEMING 03/27/16 21:31 Occupational Therapy Evaluate and Treat [CONS] Routine Comment: Reason For Exam: BLE OA, s/p right TKA Physical Therapy Evaluation and Treat [CONS] Routine Comment: Reason For Exam: BLE OA, s/p right TKA Primary care physician: HERMAN MCCALLUM Hospitalization Reason for admission: right total knee arthroplasty Condition: Stable Hospital course: 65 y.o. female admitted for right TKA. Pt reports longstanding history of bilateral knee osteoarthritis, with progressive worsening of pain symptoms; failed conservative therapies. Post-op course significant for uncontrolled pain and noted functional deficits. Pt was slow to progress with therapy and thought to be able to tolerate aggressive IPR. IPR course was significant for worsening RLE swelling identified as RLE DVT at peroneal vein; pt was initiated on Xarelto. Pain control was difficult as pt was unable to tolerate narcotics due to nausea; improved control after initiation of tramadol. Functionally, pt progressed well with therapies. On admission, pt was independent to Willie for ADLs; SBA/supervision for bed mobility/transfers/gait. At the time of discharge , pt has progressed to [place] for gait, transfers, and ADLs. Family training was completed with and pt is stable for d/c home. Disposition: DISCHARGED TO HOME OR SELFCARE - Discharge Diagnoses (1) Bilateral primary osteoarthritis of knee Status: Acute (2) Hx of total knee arthroplasty Status: Acute Qualifiers: Laterality: right Qualified Code(s): Z96.651 - Presence of right artificial knee joint (3) Unsteady gait Status: Acute (4) HTN (hypertension) Status: Acute Qualifiers: Hypertension type: essential hypertension Qualified Code(s): I10 - Essential (primary) hypertension (5) Deep venous thrombosis of right peroneal vein Status: Acute Core Measure Documentation - Palliative Care Palliative Care/ Comfort Measures: Not Applicable - Core Measures Any of the following diagnoses?: DVT/PE - VTE Discharge Requirements Deep Vein Thrombosis/Pulmonary Embolism Present on Admission: No Has pt received <5 days of overlap therapy or INR<2.0: No Anticoagulant overlap therapy prescribed at discharge: No Contraindication No Overlap Therapy order at DC: Not Indicated (on xarelto) Exam - Constitutional Vitals: Temp Pulse Resp BP Pulse Ox 98.4 F 80 18 152/80 98 03/31/16 21:17 03/31/16 22:00 04/01/16 07:30 03/31/16 21:17 03/31/16 11:15 General appearance: Present: no acute distress - EENT Eyes: Present: EOM intact ENT: hearing intact - Neck Neck: Present: supple, normal ROM - Respiratory Respiratory effort: normal - Extremities Extremity abnormal: edema (RLE), other (right knee incision healing well) - Psychiatric Psychiatric: appropriate mood/affect, intact judgment & insight, memory intact, cooperative - Neurologic Neurologic: CNII-XII intact, moves all extremities Plan Activity: no driving until cleared by PCP, fall precautions Weight Bearing Status: Weight Bear as Tolerated Diet: regular Wound: keep clean and dry Special Instructions: physical therapy (outpt [facility]) Durable Medical Equipment Needed Upon Discharge: Walker-Rolling, Wheelchair, Bedside Commode, other (shower chair; [facility]) Follow up with: HERMAN MCCALLUM MD [Primary Care Provider] - 7 Days LESLEY HICKS MD [Staff Physician] - 7 Days Prescriptions: amLODIPine [Norvasc] 5 mg PO QDAY #30 tablet traMADol [Ultram 50 MG tab] 50 mg PO Q4H PRN #60 tablet PRN Reason: Pain, Moderate (4-6) Rivaroxaban [Xarelto] 15 mg PO BIDDIAB #35 tablet Rivaroxaban [Xarelto] 20 mg PO QDAY #30 tab
[2016-04-01] MEDS: COLACE PO SCH (09:52)
[2016-04-01] MEDS: PEPCID PO SCH (09:52)
[2016-04-01] MEDS: NORVASC PO SCH (09:53)
[2016-04-01] MEDS: XARELTO PO SCH (09:53)
[2016-04-01 09:55] VITALS: BP 123/98
== END 2016-04-01 14:22 | disposition home or self-care (01) | DRG 554 ==
LOC: 3B 21:13
PROVIDERS: ADMIT Family Medicine; ATTEND Family Medicine
DX: M17.0 Bilateral primary osteoarthritis of knee (principal); I82.491 Acute embolism and thrombosis of other specified deep vein of right lower extremity; Z96.651 Presence of right artificial knee joint; Z96.611 Presence of right artificial shoulder joint; K59.00 Constipation, unspecified; K21.9 Gastro-esophageal reflux disease without esophagitis; R26.81 Unsteadiness on feet; I10 Essential (primary) hypertension; Z88.1 Allergy status to other antibiotic agents; Z88.8 Allergy status to other drugs, medicaments and biological substances; Z79.899 Other long term (current) drug therapy; Z90.710 Acquired absence of both cervix and uterus; Z80.3 Family history of malignant neoplasm of breast; Z82.49 Family history of ischemic heart disease and other diseases of the circulatory system; Z83.3 Family history of diabetes mellitus
CPT/HCPCS: 36415; 80053; 85025; J1650; Q0162

== ENCOUNTER 2016-06-08 08:35 | Outpatient (CLI) | payer BC, MEDICARE ==
--- NOTE | 2016-06-08 10:09 | Mammography Report ---
Bilateral mammogram: Compared to 07/10/14. CAD study utilized. Findings: Predominance adipose tissue bilaterally. No mass or microcalcification. Benign axillary nodes. Impression: Benign findings. Annual followup recommended. BI-RADS CATEGORY: 2 = Benign ACR BI-RADS MAMMOGRAPHIC CODES: 0 = Needs additional imaging evaluation; 1 = Negative; 2 = Benign; 3 = Probably benign; 4 = Suspicious; 5 = Malignant; 6 = Known biopsy-proven malignancy COMMENT: 1. Dense breast tissue, i.e., adenosis, fibrocystic changes, etc., may obscure an underlying neoplasm. 2. Approximately 10% of cancers are not detected with mammography. 3. A negative mammography report should not delay biopsy if a clinically suspicious mass is present. COMMENT: Patient follow-up letters are generated in [employer].
== END 2016-06-08 08:36 | disposition home or self-care (01) ==
LOC: MAMMO 08:35
PROVIDERS: ATTEND Internal Medicine
DX: Z12.31 Encounter for screening mammogram for malignant neoplasm of breast (principal)
CPT/HCPCS: 77067; G0202

== ENCOUNTER 2016-06-29 08:06 | Outpatient (CLI) | payer BC ==
--- NOTE | 2016-06-30 09:58 | Vascular Lab Report ---
Right Lower Extremity Venous Duplex Study: Reason for Exam: History of DVT. Comments on the Right: All veins visualized are freely compressible without evidence of internal echogenicity. Flow is spontaneous and phasic throughout. No evidence of acute or chronic thrombus is seen in any of the vessels visualized. Comments on the Left: A limited duplex study was done of the proximal veins of the left lower extremity. All veins visualized are freely compressible without evidence of internal echogenicity. Flow is spontaneous and phasic throughout. No evidence of acute or chronic thrombus is seen in any of the vessels visualized. Impression: No evidence of acute or chronic deep venous thrombosis in the right lower extremity.
== END 2016-06-29 08:07 | disposition home or self-care (01) ==
LOC: VAS 08:06
PROVIDERS: ATTEND Internal Medicine
DX: I82.421 Acute embolism and thrombosis of right iliac vein (principal)

== ENCOUNTER 2017-06-30 12:44 | Outpatient (CLI) | payer MEDICARE ==
--- NOTE | 2017-07-01 07:20 | Mammography Report ---
Bilateral mammogram: Compared to 06/08/16 and 07/10/14. CAD study utilized. Findings: Predominance adipose tissue bilaterally. Needle focal 3 mm new density left posterior breast seen on MLO view. Benign calcifications. Benign axilla. Impression: New focal dense asymmetry left breast. Recommend spot magnification ascites sonographic examination. BI-RADS CATEGORY: 0 = Needs additional imaging evaluation ACR BI-RADS MAMMOGRAPHIC CODES: 0 = Needs additional imaging evaluation; 1 = Negative; 2 = Benign; 3 = Probably benign; 4 = Suspicious; 5 = Malignant; 6 = Known biopsy-proven malignancy COMMENT: 1. Dense breast tissue, i.e., adenosis, fibrocystic changes, etc., may obscure an underlying neoplasm. 2. Approximately 10% of cancers are not detected with mammography. 3. A negative mammography report should not delay biopsy if a clinically suspicious mass is present. COMMENT: Patient follow-up letters are generated in [employer].
== END 2017-06-30 12:45 | disposition home or self-care (01) ==
LOC: MAMMO 12:44
PROVIDERS: ATTEND Internal Medicine
DX: Z12.31 Encounter for screening mammogram for malignant neoplasm of breast (principal)
CPT/HCPCS: 77067

== ENCOUNTER 2017-07-18 13:01 | Outpatient (CLI) | payer MEDICARE ==
--- NOTE | 2017-07-18 13:38 | Mammography Report ---
Left mammogram: Call back for left asymmetry. The additional images again demonstrates the focal left asymmetry in the lateral breast. The asymmetry is somewhat elongated and small having a maximum dimension of 7 mm. Review of prior exam in 2017 would appear to indicate that it was present and unchanged from that exam. It is not as well seen in the CC view but appears to be overlapping another density in the lateral breast. No suspicious characteristics. Impression: Probably stable benign left asymmetry. Recommendation: Reevaluate asymmetry in 6 months during annual mammogram followup. BI-RADS CATEGORY: 3 = Probably benign ACR BI-RADS MAMMOGRAPHIC CODES: 0 = Needs additional imaging evaluation; 1 = Negative; 2 = Benign; 3 = Probably benign; 4 = Suspicious; 5 = Malignant; 6 = Known biopsy-proven malignancy COMMENT: 1. Dense breast tissue, i.e., adenosis, fibrocystic changes, etc., may obscure an underlying neoplasm. 2. Approximately 10% of cancers are not detected with mammography. 3. A negative mammography report should not delay biopsy if a clinically suspicious mass is present.
== END 2017-07-18 13:02 | disposition home or self-care (01) ==
LOC: MAMMO 13:01
PROVIDERS: ATTEND Internal Medicine
DX: R92.8 Other abnormal and inconclusive findings on diagnostic imaging of breast (principal)

== ENCOUNTER 2017-07-26 07:51 | Day surgery (SDC) | payer MEDICARE ==
[2017-07-26] MEDS ORDERED: ECOTRIN PO NR (08:27)
[2017-07-26 08:59] LABS: Hematocrit 41.1 % (30.3-42.9); Hemoglobin 14.1 gm/dl (10.1-14.3); Mean Corpuscular HGB Conc 34 % (30-34); Mean Corpuscular Hemoglobin 32 pg (28-32); Mean Corpuscular Volume 94 fl (79-97); Platelet Count 179 K/mm3 (140-440); Red Blood Count 4.39 M/mm3 (3.65-5.03); Red Cell Distribution Width 14.7 % (13.2-15.2)
[2017-07-26] MEDS ORDERED: NACL 0.9% 500 ML 500 ML IV SCH (09:00)
[2017-07-26 09:08] LABS: INR 0.95 (0.87-1.13)
[2017-07-26 09:35] LABS: Total Cells Counted 100
[2017-07-26 09:36] LABS: Anisocytosis 1+; Ovalocytes 1+
[2017-07-26 09:40] LABS: BUN/Creatinine Ratio 21; Blood Urea Nitrogen 15 mg/dL (7-17); Calcium 9.1 mg/dL (8.4-10.2); Hemolysis Index 342
[2017-07-26] MEDS ORDERED: CALAN ONE ×2 (10:52→13:40)
[2017-07-26] MEDS ORDERED: HEPARIN/NS 5000 UNIT/500ML(CATH LAB) 0 ML IR ONE (10:52)
[2017-07-26] MEDS ORDERED: HEPARIN 10,000 UNITS/10 ML ONE ×2 (10:52→13:40)
[2017-07-26] MEDS ORDERED: SUBLIMAZE ONE (10:53)
[2017-07-26] MEDS ORDERED: NITROGLYCERIN SYRINGE 0 ML ONE (10:53)
[2017-07-26] MEDS ORDERED: XYLOCAINE 2% INFILTRATI ONE ×2 (10:53→13:40)
[2017-07-26] MEDS ORDERED: VERSED ONE ×2 (10:54→13:41)
[2017-07-26] MEDS ORDERED: HEPARIN/NS 5000 UNIT/500ML(CATH LAB) 1,000 ML IR ONE (13:40)
[2017-07-26] MEDS ORDERED: NITROGLYCERIN SYRINGE 3 ML ONE (13:40)
[2017-07-26] MEDS: SUBLIMAZE ONE ×2 (14:40→14:49)
--- NOTE | 2017-07-26 15:17 | Discharge Summary ---
Short Stay Discharge Plan Activity: advance as tolerated Weight Bearing Status: Full Weight Bearing Diet: low fat, low cholesterol, low salt Wound: keep clean and dry Special Instructions: no heavy lifting (3 days) Follow up with: HERMAN MCCALLUM MD [Primary Care Provider] - 7 Days MARCEL SILVER MD [Staff Physician] - 7 Days
--- NOTE | 2017-07-26 15:57 | Cardiac Catherization Report ---
CARDIAC CATHETERIZATION REPORT REASON FOR PROCEDURE: Abnormal stress test. PROCEDURES: 1. Left heart catheterization. 2. Selective left and right coronary angiography. 3. Left ventricular angiography. DESCRIPTION OF PROCEDURE: The patient was prepped and draped in a sterile fashion after informed consent. The right radial cath site was prepped and draped after a negative Eliseo's test. The right radial artery was entered using Seldinger technique followed by placement of a 6-Danish hydrophilic sheath. Routine radial cocktail was administered via the sheath. Left coronary angiography was performed using #3.5 left Morgan catheter. A #4 right Morgan was used for right coronary angiography. A pigtail catheter was used for left ventricle angiography. The catheters were removed, sheath removed, and hemostasis achieved using manual compression. The patient was returned to the postprocedure unit in stable condition. There were no complications. FINDINGS: HEMODYNAMICS: Left ventricular end-diastolic pressure was 21, following coronary angiography. Ascending aortic pressure was 149/78. There was no significant pressure gradient on pullback across the aortic valve. CORONARY ANGIOGRAPHY: The left main coronary artery was free of significant disease. The left anterior descending artery and its diagonal branches contained mild luminal irregularities. A large ramus intermedius artery contained mild luminal irregularities. Circumflex artery and its obtuse marginal branches contained mild luminal irregularities. The right coronary artery was dominant and similarly contained mild luminal irregularities. Left ventricular systolic function was well preserved, ejection fraction 50-55%. CONCLUSION: 1. No significant coronary artery disease, mild luminal irregularities noted as detailed above. 2. Well preserved left ventricular systolic function, ejection fraction of 55%. RECOMMENDATION: Risk factor modification and medical therapy. JOB# [id number] CA/NTS
[2017-07-26] MEDS ORDERED: NACL 0.9% 1000 ML 1,000 ML IV SCH (16:00)
[2017-07-26 18:38] VITALS: BP 126/69
== END 2017-07-26 18:48 | disposition home or self-care (01) ==
LOC: CATHLABREC 07:51
PROVIDERS: ATTEND Internal Medicine Cardiovascular Disease
DX: I51.89 Other ill-defined heart diseases (principal); K21.9 Gastro-esophageal reflux disease without esophagitis; Z96.659 Presence of unspecified artificial knee joint; Z96.611 Presence of right artificial shoulder joint; Z98.890 Other specified postprocedural states; Z79.01 Long term (current) use of anticoagulants; Z82.49 Family history of ischemic heart disease and other diseases of the circulatory system
CPT/HCPCS: 36415; 80048; 84132; 85007; 85025; 85610; 85730; 93005; 93010; 93458; 99156; 99157; C1894; J1644; J2250; J3010; J7040; Q9967

== ENCOUNTER 2017-12-12 08:12 | Outpatient (CLI) | payer MEDICARE ==
--- NOTE | 2017-12-12 08:47 | Mammography Report ---
LEFT DIGITAL DIAGNOSTIC MAMMOGRAM : 12/12/17 08:12:00 CLINICAL: Recalled for asymmetry. COMPARISON:07/18/17 screening FINDINGS: Routine views plus lateral and spot magnification MLO views were performed and are negative. IMPRESSION: Negative Mammogram. BI-RADS CATEGORY: 1 -- Negative RECOMMENDATION: Routine mammographic screening in one year. ACR BI-RADS MAMMOGRAPHIC CODES: 0 = Needs additional imaging evaluation; 1 = Negative; 2 = Benign; 3 = Probably benign; 4 = Suspicious; 5 = Malignant; 6 = Known biopsy-proven malignancy COMMENT: 1. Dense breast tissue, i.e., adenosis, fibrocystic changes, etc., may obscure an underlying neoplasm. 2. Approximately 10% of cancers are not detected with mammography. 3. A negative mammography report should not delay biopsy if a clinically suspicious mass is present. COMMENT: Patient follow-up letters are generated via our [employer] application.
== END 2017-12-12 08:13 | disposition home or self-care (01) ==
LOC: MAMMO 08:12
PROVIDERS: ATTEND Internal Medicine
DX: R92.8 Other abnormal and inconclusive findings on diagnostic imaging of breast (principal); I10 Essential (primary) hypertension; K21.9 Gastro-esophageal reflux disease without esophagitis; M19.90 Unspecified osteoarthritis, unspecified site; Z90.710 Acquired absence of both cervix and uterus

== ENCOUNTER 2018-07-03 09:27 | Outpatient (CLI) | payer MEDICARE ==
--- NOTE | 2018-07-03 11:41 | Mammography Report ---
BILATERAL DIGITAL SCREENING MAMMOGRAM with CAD: 07/03/18 09:27:00 CLINICAL: Routine screening. COMPARISON: 06/30/17 FINDINGS: Less than optimal positioning of the right MLO view due to limited mobility of the right upper extremity. As result, posterior tissues are not optimally included. There are bilateral scattered areas of fibroglandular density.No mass, architectural distortion or suspicious calcifications. IMPRESSION: No mammographic evidence of malignancy. BI-RADS CATEGORY: 1 -- Negative RECOMMENDATION: Routine mammographic screening in one year. COMMENT: Patient follow-up letters are generated by our [employer] application.
== END 2018-07-03 09:28 | disposition home or self-care (01) ==
LOC: MAMMO 09:27
PROVIDERS: ATTEND Internal Medicine
DX: Z12.31 Encounter for screening mammogram for malignant neoplasm of breast (principal); K21.9 Gastro-esophageal reflux disease without esophagitis; I10 Essential (primary) hypertension; M19.90 Unspecified osteoarthritis, unspecified site
CPT/HCPCS: 77067